=== PATIENT | female | born 1980 | race Caucasian/White ===

== ENCOUNTER → 2018-02-15 | Outpatient (CLI) | payer BC, OTHER | LOC: BRMIMAGING 15:28 | PROVIDERS: ATTEND Family Medicine | DX: Z12.31 Encounter for screening mammogram for malignant neoplasm of breast (principal); Z80.3 Family history of malignant neoplasm of breast ==

== ENCOUNTER → 2018-03-01 | Outpatient (CLI) | payer OTHER | LOC: BRMIMAGING 09:51 | PROVIDERS: ATTEND Family Medicine | DX: R92.8 Other abnormal and inconclusive findings on diagnostic imaging of breast (principal) | CPT/HCPCS: 76641-PO ==